=== PATIENT | female | born 1960 | race Caucasian/White ===

== ENCOUNTER 2018-04-21 06:39 | Emergency (ER) | payer MEDICAID, OTHER ==
[~2018-04-21] VITALS: Ht 162.6 cm; Wt 113.6 kg
[~2018-04-21 06:39] MED LIST: LOPE1TAB46 PO; ONDA4TAB6 PO
[2018-04-21] MEDS ORDERED: AZIT250T PO (06:51)
[2018-04-21 06:59] VITALS: BP 169/88
== END 2018-04-21 07:01 | disposition home or self-care (01) ==
LOC: ER 06:40
DX: J22 Unspecified acute lower respiratory infection (principal); J32.0 Chronic maxillary sinusitis; J32.1 Chronic frontal sinusitis; Z88.2 Allergy status to sulfonamides; Z79.899 Other long term (current) drug therapy; Z98.890 Other specified postprocedural states; Z60.2 Problems related to living alone
CPT/HCPCS: 99283

== ENCOUNTER 2019-03-23 10:55 | Emergency (ER) | payer OTHER ==
[~2019-03-23] VITALS: Ht 162.6 cm; Wt 100.0 kg
[2019-03-23 11:02] VITALS: BP 133/94
[2019-03-23] MEDS ORDERED: LIDOcaine 5% patch TP STA (12:45)
[2019-03-23] MEDS ORDERED: ketorolac tromethamine 15mg/ml inj. IM ONE (12:45)
[2019-03-23] MEDS ORDERED: CYCL-1 PO (12:53)
== END 2019-03-23 13:14 | disposition home or self-care (01) ==
LOC: ER 10:55
DX: S29.011A Strain of muscle and tendon of front wall of thorax, initial encounter (principal); Z98.890 Other specified postprocedural states; Z88.2 Allergy status to sulfonamides; X50.1XXA Overexertion from prolonged static or awkward postures, initial encounter; Y93.89 Activity, other specified; Y92.89 Other specified places as the place of occurrence of the external cause; Y99.9 Unspecified external cause status
CPT/HCPCS: 93005; 96372; 99283; J1885; 96376

== ENCOUNTER 2022-12-28 08:46 | Emergency (ER) | payer BC, OTHER ==
[~2022-12-28] VITALS: Ht 162.6 cm; Wt 113.0 kg
[~2022-12-28 08:46] MED LIST changes: +CYCL-1 PO; +LOSA25TA41 PO
[2022-12-28 08:53] VITALS: BP 162/54
--- NOTE | 2022-12-28 10:25 | NUR ---
VASCULAR AT BEDSIDE
== END 2022-12-28 11:09 | disposition home or self-care (01) ==
LOC: ER 08:47
DX: M25.561 Pain in right knee (principal); E11.9 Type 2 diabetes mellitus without complications; Z87.891 Personal history of nicotine dependence; Z60.2 Problems related to living alone; Z98.890 Other specified postprocedural states; Z88.2 Allergy status to sulfonamides; Z79.899 Other long term (current) drug therapy; X50.1XXA Overexertion from prolonged static or awkward postures, initial encounter; Y93.89 Activity, other specified; Y92.89 Other specified places as the place of occurrence of the external cause; Y99.8 Other external cause status
CPT/HCPCS: 93971; 99284

== ENCOUNTER 2024-03-04 06:19 | Day surgery (SDC) | payer BC, OTHER ==
[2024-02-26 12:01] LABS: BASOPHILS # (AUTO) 0.1 X10'3 (0-0.2); BASOPHILS % (AUTO) 0.6 % (0-1); EOSINOPHILS # (AUTO) 0.3 X10'3 (0-0.9); EOSINOPHILS % (AUTO) 2.7 % (0-6); LYMPHOCYTES # (AUTO) 2.6 X10'3 (1.1-4.8); LYMPHOCYTES % (AUTO) 25.7 % (21-51); MEAN CORPUSCULAR HEMOGLOBIN 28.9 PG (27.0-31.0); MEAN CORPUSCULAR HGB CONC 33.3 g/dL (33.0-36.5); MEAN CORPUSCULAR VOLUME 86.7 FL (78-98); MEAN PLATELET VOLUME 7.8 FL (7.4-10.4); MONOCYTES # (AUTO) 0.7 X10'3 (0-0.9); MONOCYTES % (AUTO) 6.9 % (2-12); NEUTROPHILS # (AUTO) 6.5 X10'3 (1.8-7.7); NEUTROPHILS % (AUTO) 64.1 % (42-75); PRE OP HEMATOCRIT 37.6 % (35.0-45.0); PRE OP HEMOGLOBIN 12.5 g/dL (12.0-16.0); PRE OP PLATELET COUNT 295 X10'3 (140-440); PRE OP WHITE BLOOD COUNT 10.2 10'3 (4.8-10.8); RED BLOOD COUNT 4.34 X10'6 (4.20-5.60); RED CELL DISTRIBUTION WIDTH 14.6 % (11.5-14.5)
[2024-02-26 12:07] LABS: ALBUMIN/GLOBULIN RATIO 0.7 (1.1-1.5); ALKALINE PHOSPHATASE 89 IU/L (46-116); BLOOD UREA NITROGEN 14 MG/DL (7-18); BUN/CREATININE RATIO 21.9 (10.0-20.0); CALCIUM 9.1 MG/DL (8.5-10.1); CHLORIDE 106 MMOL/L (99-107); CREATININE 0.64 MG/DL (0.40-0.90); PRE OP ALT 71 U/L (30-65); PRE OP ANION GAP 10 (8-16); PRE OP AST 43 U/L (10-37); PRE OP BILIRUB, TOTAL 0.2 MG/DL (0.0-1.0); PRE OP POTASSIUM 3.9 MMOL/L (3.4-5.1); PRE OP SODIUM 141 MMOL/L (135-145); TOTAL CARBON DIOXIDE 24.7 MMOL/L (24-32); TOTAL PROTEIN 7.3 G/DL (6.4-8.2); eGFR > 90 ML/MIN
[2024-02-26 12:44] LABS: PRE OP GLUCOSE 219 MG/DL (70-104)
[~2024-03-04] VITALS: Ht 162.6 cm; Wt 115.0 kg
[2024-03-04] VITALS (9 sets, daily range): BP systolic 138–160; BP diastolic 71–96; PULSE 68–85; RESP 13–18; TEMP 97.7; O2SAT 94–100
[~2024-03-04 06:19] MED LIST changes: +ACET-2006 PO; +CRAN500C4 PO; -CYCL-1 PO; +HYDR12.55 PO; +IBUP-2417 PO; -LOPE1TAB46 PO; +LOSA-415 PO; -LOSA25TA41 PO; +METF-900 PO; +MV-M-6 PO; -ONDA4TAB6 PO; +TUMERIC PO; +clindamycin 600mg/D5W 50ml 50 ML IV ONE
[2024-03-04] MEDS: cefazolin 2gm/D5W 100mL 100 ML IV ONE (07:09)
[2024-03-04] MEDS: famotidine 20mg tablet PO ONE (07:11)
[2024-03-04] MEDS: ringers solution, lacted 1,000 ML IV SCH (07:11)
[2024-03-04] MEDS ORDERED: LIDOcaine 2% (20mg/ml) 5ml vial ONE (07:36)
[2024-03-04] MEDS ORDERED: morphine 2 MG/ML inj. syringe IV PRN (07:55)
[2024-03-04] MEDS ORDERED: ringers solution, lacted 1,000 ML IV SCH (07:55)
[2024-03-04] MEDS ORDERED: proCHLORperazine 10 MG/2 ml inj IV PRN (07:55)
[2024-03-04] MEDS ORDERED: morphine 4 MG/ML inj SYRINge IV PRN (07:55)
[2024-03-04] MEDS ORDERED: meperidine/PF 25mg/ml syringe IV PRN ×2 (07:55)
[2024-03-04] MEDS ORDERED: acetaminophen 1,000mg/100ml IV 100 ML IV ONE (07:55)
[2024-03-04] MEDS ORDERED: fentaNYL/PF 50MCG/1 ML 2ML syringe ONE (08:44)
[2024-03-04] MEDS ORDERED: ondansetron/PF 4mg/2ml inj ONE (08:50)
[2024-03-04] MEDS ORDERED: dexamethasone sod phosphate 4mg/ml inj. ONE (08:50)
[2024-03-04] MEDS ORDERED: propofol inj 20 ML IV ONE (08:50)
[2024-03-04] MEDS ORDERED: midazolam 1 mg/ML 2ml injection ONE (08:50)
[2024-03-04] MEDS: LIDOcaine 1% (10mg/ml) 2ml vial ONE (08:57)
[2024-03-04] MEDS: BUPIVAcaine/PF 2.5mg/ml (0.25%) 10ml vial ONE (08:57)
[2024-03-04] MEDS: ondansetron/PF 4mg/2ml inj IV PRN (09:31)
== END 2024-03-04 10:17 | disposition home or self-care (01) ==
LOC: PAS 06:19
PROVIDERS: ATTEND Orthopaedic Surgery Hand Surgery
DX: G56.01 Carpal tunnel syndrome, right upper limb (principal); I10 Essential (primary) hypertension; E11.9 Type 2 diabetes mellitus without complications; G47.33 Obstructive sleep apnea (adult) (pediatric); M81.0 Age-related osteoporosis without current pathological fracture; M85.80 Other specified disorders of bone density and structure, unspecified site; Z87.891 Personal history of nicotine dependence; Z98.891 History of uterine scar from previous surgery; Z98.41 Cataract extraction status, right eye; Z98.42 Cataract extraction status, left eye; Z98.890 Other specified postprocedural states; Z88.2 Allergy status to sulfonamides; Z88.8 Allergy status to other drugs, medicaments and biological substances
CPT/HCPCS: 29848; 36415; 80053; 82948; 85025; 93005; J0690; J1100; J2250; J2405; J2704; J3010; J3490; J7030; J7120; Z7506; Z7512; A4215; A6449; A7000